=== PATIENT | male | born 2000 | race Caucasian/White ===

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

== ENCOUNTER 2020-11-26 17:50 | Emergency (ER) | payer OTHER ==
[2020-11-26 17:56] VITALS: BMI 32.3
[2020-11-26] MEDS ORDERED: ACETAMINOPHEN 1000 MG/100 ML VIAL (NON FORMULARY) IVPB ONE (18:07)
[2020-11-26] MEDS ORDERED: ONDANSETRON 4 MG/2 ML VIAL IVPUSH ONE (18:07)
[2020-11-26] MEDS ORDERED: FAMOTIDINE 20 MG/50 ML IVPB 20 MG/50 ML MG IVPB ONE ×2 (18:07→18:31)
[2020-11-26] MEDS ORDERED: SODIUM CHLORIDE 0.9% 1000 ML INFUS.BAG IV ONE ×2 (18:07→18:09)
[2020-11-26] MEDS ORDERED: ACETAMINOPHEN INJECTION 100 ML IVPB ONE (18:31)
[2020-11-26] MEDS ORDERED: ONDANSETRON 4 MG/2 ML VIAL ONE (18:31)
[2020-11-26 18:39] LABS: BASO % 1.8 % (0-2.0); EOS % 2.3 % (0-4.5); HEMATOCRIT 49.4 % (35.4-49); HEMOGLOBIN 16.3 GM/dl (11.7-16.9); LYMPH % 22.7 % (8-40); MCH 25.5 pg (25.7-33.7); MCHC 33.1 g/dl (32.0-35.9); MEAN PLT VOLUME 8.1 fl (7.5-11.1); MONO % 6.6 % (3.8-10.2); NEUT % 66.6 % (42.8-82.8); PLATELET COUNT 421 10^3/uL (134-434); RBC 6.41 M/mm3 (4.00-5.60); RDW 13.4 % (11.9-15.9); WHITE BLOOD COUNT 14.7 K/mm3 (4.0-10.8)
[2020-11-26 18:46] LABS: INR 1.19 (0.82-1.09); PROTHROMBIN TIME (PATIENT) 13.2 SEC (10.2-13.0)
[2020-11-26 18:52] LABS: ALBUMIN 4.9 g/dl (3.4-5.0); BILIRUBIN,TOTAL 0.8 mg/dl (0.2-1); CALCIUM 9.5 mg/dl (8.5-10); CREATININE 0.8 mg/dl (0.55-1.3); TOT PROT 8.1 g/dl (6.4-8.2)
[2020-11-26 18:54] LABS: ACTIVATED PTT 29.2 SECONDS (25.2-36.5)
[2020-11-26 21:15] VITALS: BP 122/77; PULSE 93; TEMP 97.8
== END 2020-11-26 21:29 | disposition home or self-care (01) ==
LOC: FER 17:50
PROC: 3E033GC Introduction of Other Therapeutic Substance into Peripheral Vein, Percutaneous Approach (ICD-10-PCS; principal; 2020-11-26)
DX: A08.4 Viral intestinal infection, unspecified (principal)
CPT/HCPCS: 36415; 74177-TC; 80053; 81003; 81015; 83690; 85025; 85610; 85730; 93005; 96365; 96375; 99285-25; C9803; J0131; U0003; U0005